=== PATIENT | female | born 1955 | race Caucasian/White ===

== ENCOUNTER 2024-11-14 18:46 | Emergency (ER) | payer OTHER, MEDICAID ==
[~2024-11-14] VITALS: Ht 162.6 cm; Wt 65.0 kg
[~2024-11-14 18:46] MED LIST: NORT25CA3 PO; SERT-158 PO
[2024-11-14 18:49] VITALS: BP 101/65; PULSE 109; RESP 18; TEMP 98.6; O2SAT 96
[2024-11-14 19:21] LABS: BASOPHILS % (AUTO) 0.4 % (0.0-2.0); EOSINOPHILS % (AUTO) 0.2 % (1.0-6.0); HEMATOCRIT 36.3 % (36-46); LYMPHOCYTES # (AUTO) 1.6 K/uL (1.0-4.8); LYMPHOCYTES % (AUTO) 17.2 % (22.0-44.0); MEAN CORPUSCULAR HEMOGLOBIN 33.1 pg (26.0-34.0); MEAN CORPUSCULAR VOLUME 100 fL (80-100); MONOCYTES # (AUTO) 0.5 K/uL (0.1-1.0); MONOCYTES % (AUTO) 5.7 % (2.0-9.0); NEUTROPHILS % (AUTO) 76.5 % (40.0-70.0); PLATELET COUNT (AUTO) 359 K/uL (150-450); RED BLOOD CELL COUNT(AUTO) 3.61 MIL/uL (4.00-5.20); RED CELL DISTRIBUTION WIDTH 13.9 % (11.5-14.5); WHITE BLOOD COUNT (AUTO) 9.2 K/uL (4.5-11.0)
[2024-11-14 19:25] LABS: CALCIUM, TOTAL 9.1 mg/dL (8.8-10.5); CREATININE 0.95 mg/dL (0.60-1.30); POTASSIUM 4.3 mmol/L (3.5-5.1)
[2024-11-14] MEDS: LORazepam 1 MG TABLET PO ONE (22:26)
== END 2024-11-14 22:38 | disposition home or self-care (01) ==
LOC: EMS 18:47
DX: F41.9 Anxiety disorder, unspecified (principal); E11.9 Type 2 diabetes mellitus without complications; I10 Essential (primary) hypertension; Z79.899 Other long term (current) drug therapy
CPT/HCPCS: 99283; 80048; 85025; 36415; G0480

== ENCOUNTER 2025-05-30 11:10 | Inpatient (IN) | payer OTHER, MEDICAID ==
[~2025-05-30] VITALS: Ht 152.4 cm; Wt 74.5 kg
[~2025-05-30 11:10] MED LIST changes: +ARIP5TAB37 PO; +BUSP10TA23 PO; +ESCI20TA87 PO; -NORT25CA3 PO; +QUET25TA PO; -SERT-158 PO
[2025-05-31 18:20] LABS: GLUCOMETER DEV NAME(LOC) POC.BV; POC SARS-COV2 AG, FIA NEGATIVE (NEGATIVE)
[2025-05-31 23:21] LABS: GLUCOMETER DEV NAME(LOC) BV2X.3; GLUCOSE,POINT OF CARE 104 MG/DL (70-110)
[2025-06-01 00:29] VITALS: BP 126/70; PULSE 75; RESP 18; TEMP 98.6; O2SAT 98
[2025-06-01] MEDS ORDERED: NICOTINE 14 MG/24 HOUR PATCH TD PRN (07:15)
[2025-06-01] MEDS ORDERED: PETROLATUM,WHITE 28 GM JELLY TP PRN (07:15)
[2025-06-01] MEDS ORDERED: DOCUSATE SODIUM 100 MG CAPSULE PO PRN (07:15)
[2025-06-01] MEDS ORDERED: ALBUTEROL SULFATE HFA 90 MCG/PUFF 8 GM INHALER IH PRN (07:15)
[2025-06-01] MEDS ORDERED: GuaiFENesin/D-METHORPHAN [SUGAR-FREE] 200-20MG/10 ML SYRUP UDCUP PO PRN (07:15)
[2025-06-01] MEDS ORDERED: LOPERAMIDE HCL 2 MG CAPSULE PO PRN (07:15)
[2025-06-01] MEDS ORDERED: ONDANSETRON 4 MG TABLET PO PRN (07:15)
[2025-06-01 08:16] VITALS: BP 115/81; PULSE 76; RESP 18; TEMP 97.8; O2SAT 99
[2025-06-01 09:01] LABS: PLATELET COUNT (AUTO) 290 K/uL (150-450); RED BLOOD CELL COUNT(AUTO) 3.46 MIL/uL (4.00-5.20); RED CELL DISTRIBUTION WIDTH 14.8 % (11.5-14.5); WHITE BLOOD COUNT (AUTO) 4.6 K/uL (4.5-11.0)
[2025-06-01 09:29] LABS: ASPARTATE AMINOTRANSFERASE 23 U/L (15-37); CALCIUM, TOTAL 9.0 mg/dL (8.8-10.5); CHOL/HDL RATIO 2.7 (3.9-5.7); CREATININE 0.65 mg/dL (0.60-1.30); GLOMERULAR FILTR. RATE CALC > 60 mL/min (>60); GLUCOSE,RANDOM 84 mg/dL (70-110); SODIUM SERUM 141 mmol/L (136-145); TOTAL PROTEIN, SERUM 6.3 g/dL (6.4-8.2); UREA NITROGEN, BLOOD 12 mg/dL (7-18)
[2025-06-01 09:42] LABS: LDL CHOL (CALC.) 74 mg/dL (0-130)
[2025-06-01 11:27] VITALS: RESP 18
[2025-06-01] MEDS: ESCITALOPRAM OXALATE 20 MG TABLET PO SCH (14:07)
[2025-06-01 20:08] VITALS: BP 136/72; PULSE 97; RESP 17; TEMP 97.6; O2SAT 99
[2025-06-01 21:40] VITALS: RESP 18; O2SAT 98
[2025-06-01] MEDS: ACETAMINOPHEN 325 MG TABLET PO PRN (21:44)
[2025-06-01 22:44] VITALS: RESP 16; O2SAT 99
[2025-06-02 08:44] VITALS: BP 139/96; PULSE 92; RESP 17; TEMP 98.1; O2SAT 97
[2025-06-02 12:10] VITALS: BP 131/80; PULSE 99; RESP 18; TEMP 98.2; O2SAT 98
[2025-06-02] MEDS: LOSARTAN POTASSIUM 25 MG TABLET PO SCH (12:30)
[2025-06-02] MEDS: IBUPROFEN 400 MG TABLET PO PRN (12:30)
[2025-06-02 13:14] LABS: CHOL/HDL RATIO 3.8 (3.9-5.7); LDL CHOL (CALC.) 113.0 mg/dL (0-130)
[2025-06-02 13:30] VITALS: RESP 18
[2025-06-02] MEDS: DOCUSATE SODIUM 100 MG CAPSULE PO SCH (17:28)
[2025-06-02 20:18] VITALS: BP_SYST 119; BP_DIAS 21; BP_DIAS 81; PULSE 89; RESP 17; TEMP 99.1; O2SAT 98
[2025-06-02] MEDS: ATORVASTATIN CALCIUM 20 MG TABLET PO SCH (20:27)
[2025-06-02] MEDS: OMEGA-3/DHA/EPA/FISH OIL 1,000 MG CAPSULE PO SCH (20:27)
[2025-06-02 22:06] LABS: HEPATITIS C AB (EIA) Non Reactive (Non Reactive)
[2025-06-03 06:02] VITALS: BP 128/80; PULSE 90; RESP 18; TEMP 98.9; O2SAT 98
[2025-06-03] MEDS: FAMOTIDINE 20 MG TABLET PO SCH (06:45)
[2025-06-03] MEDS: FERROUS SULFATE 325 MG EC TABLET PO SCH (06:45)
[2025-06-03 07:02] VITALS: RESP 18
[2025-06-03] MEDS: MAGNESIUM HYDROXIDE SUSPENSION 30 ML UDCUP PO PRN (07:02)
[2025-06-03] MEDS: CHOLECALCIFEROL (VIT D3) 2,000 UNITS [50 MCG] TABLET PO SCH (08:21)
[2025-06-03 08:37] VITALS: BP 127/82; PULSE 82; RESP 18; TEMP 98.3; O2SAT 95
[2025-06-03 13:20] VITALS: BP 130/80; PULSE 85; RESP 18; TEMP 98.9; O2SAT 96
[2025-06-03] MEDS: INFLUENZA VIRUS VACCINE TVS (6MO+) 2025-26/PF 45 MCG/0.5 ML SYRINGE IM. ONE (13:25)
[2025-06-03 14:20] VITALS: RESP 18
[2025-06-03 20:16] VITALS: BP 119/70; PULSE 87; RESP 16; TEMP 97.5; O2SAT 98
[2025-06-04 08:48] VITALS: BP 118/74; PULSE 81; RESP 18; TEMP 98; O2SAT 95
[2025-06-04 20:12] VITALS: BP 113/68; PULSE 88; RESP 18; TEMP 97.8; O2SAT 97
[2025-06-05 08:25] VITALS: BP 144/99; PULSE 96; RESP 18; TEMP 98.3; O2SAT 96
[2025-06-05 09:07] VITALS: RESP 18; O2SAT 96
[2025-06-05 10:07] VITALS: RESP 17; O2SAT 96
[2025-06-05] MEDS: MAG HYDROX/ALUMINUM HYD/SIMETH ES 30 ML SUSPENSION UDCUP PO PRN (15:14)
[2025-06-05 20:08] VITALS: BP 125/87; PULSE 84; RESP 17; TEMP 98.1; O2SAT 98
[2025-06-05] MEDS: ZOLPIDEM TARTRATE 10 MG TABLET PO PRN (20:53)
[2025-06-06 08:32] VITALS: BP 137/75; PULSE 80; RESP 17; TEMP 98; O2SAT 98
[2025-06-06 16:57] VITALS: BP 125/74; PULSE 78; RESP 18
[2025-06-06 17:57] VITALS: RESP 17
[2025-06-06 20:00] VITALS: BP 128/67; PULSE 75; RESP 18; TEMP 98.3; O2SAT 97
[2025-06-07 00:50] VITALS: BP 134/83; PULSE 83; RESP 18; TEMP 97.2; O2SAT 95
[2025-06-07 01:27] VITALS: RESP 18
[2025-06-07 09:00] VITALS: BP 139/94; PULSE 80; RESP 18; TEMP 98; O2SAT 97
[2025-06-07 20:00] VITALS: BP 136/82; PULSE 93; RESP 17; TEMP 97.7; O2SAT 98
[2025-06-08 08:14] VITALS: BP 133/85; PULSE 81; RESP 18; TEMP 97.9; O2SAT 98
[2025-06-08 20:09] VITALS: BP 116/75; PULSE 96; RESP 18; TEMP 98.3; O2SAT 95
[2025-06-09 08:23] VITALS: BP 143/89; PULSE 85; RESP 16; TEMP 98.4; O2SAT 96
[2025-06-09 08:31] VITALS: BP 143/89; PULSE 85; RESP 16; TEMP 98.4; O2SAT 96
[2025-06-09 10:12] VITALS: RESP 18; TEMP 98.4
[2025-06-09] MEDS: HYDROCORTISONE 1% 30 GM OINTMENT TP SCH (10:12)
[2025-06-09 11:12] VITALS: RESP 16
[2025-06-09 20:43] VITALS: BP 138/79; PULSE 98; RESP 18; TEMP 98.1
[2025-06-10 08:30] VITALS: BP 123/76; PULSE 89; RESP 18; TEMP 98.4; O2SAT 96
[2025-06-10 12:25] VITALS: RESP 18
[2025-06-10 13:25] VITALS: RESP 18
[2025-06-10 17:25] VITALS: RESP 18
[2025-06-10 18:25] VITALS: RESP 18
[2025-06-10 20:55] VITALS: BP 122/71; PULSE 80; RESP 16; TEMP 98.2; O2SAT 94
[2025-06-11 03:22] VITALS: BP 114/92; PULSE 90; RESP 16; O2SAT 98
[2025-06-11 04:22] VITALS: RESP 16
[2025-06-11 08:28] VITALS: BP 161/90; PULSE 87; RESP 16; TEMP 98.8; O2SAT 98
[2025-06-11 20:35] VITALS: BP 138/76; PULSE 89; RESP 17; TEMP 98.4; O2SAT 97
[2025-06-11 20:46] VITALS: RESP 17
[2025-06-11 21:46] VITALS: RESP 17
[2025-06-12 07:01] LABS: GLUCOMETER DEV NAME(LOC) BV2S.; GLUCOSE,POINT OF CARE 176 MG/DL (70-110)
[2025-06-12 08:38] VITALS: BP 147/88; PULSE 83; RESP 18; TEMP 98.4; O2SAT 98
[2025-06-12 12:04] VITALS: BP 135/80; PULSE 85; RESP 18; TEMP 98.5; O2SAT 98
[2025-06-12 14:44] VITALS: BP 134/92; PULSE 96; RESP 18; O2SAT 97
[2025-06-12 15:46] VITALS: RESP 18
[2025-06-12 20:27] VITALS: RESP 18
[2025-06-13 08:22] VITALS: BP 127/65; PULSE 79; RESP 16; TEMP 98.5; O2SAT 96
[2025-06-13 08:44] VITALS: RESP 18
[2025-06-13 09:44] VITALS: RESP 16
[2025-06-13 20:37] VITALS: RESP 18
[2025-06-14 02:59] VITALS: BP 169/93; PULSE 82; RESP 16; TEMP 98.4
[2025-06-14 03:59] VITALS: BP 145/72
[2025-06-14 08:17] VITALS: BP 153/73; PULSE 86; RESP 16; TEMP 98.1; O2SAT 96
[2025-06-14 09:52] LABS: APPEARANCE,URINE CLEAR (CLEAR); GLUCOSE, URINE (UA) NEGATIVE (NEGATIVE); LEUKOCYTE ESTERASE ,URINE NEGATIVE (NEGATIVE); NITRATE,URINE NEGATIVE (NEGATIVE); OCCULT BLOOD,URINE NEGATIVE (NEGATIVE); PH,URINE DRUG SCREEN 7.0 (5.0-8.0); SPECIFIC GRAVITIY, URINE 1.012 (1.003-1.030)
[2025-06-14 10:01] LABS: ALCOHOL, URINE DRUG SCREEN NEGATIVE (NEGATIVE); AMPHET/METH SCREEN,URINE NEGATIVE (NEGATIVE); BARBITURATE SCREEN, URINE NEGATIVE (NEGATIVE); CANNABINOID SCREEN,URINE NEGATIVE (NEGATIVE); COCAINE SCREEN,URINE NEGATIVE (NEGATIVE); METHADONE SCREEN, URINE NEGATIVE (NEGATIVE)
[2025-06-14 13:53] VITALS: RESP 16; O2SAT 96
[2025-06-14 14:53] VITALS: RESP 16; O2SAT 96
[2025-06-14 20:40] VITALS: BP 132/80; PULSE 80; RESP 18; TEMP 98.2; O2SAT 97
[2025-06-15 08:30] VITALS: BP 139/99; PULSE 100; RESP 18; TEMP 97.6; O2SAT 97
[2025-06-15 21:10] VITALS: BP 129/87; PULSE 89; RESP 18; TEMP 98.4; O2SAT 98
[2025-06-16 08:15] VITALS: BP 147/88; PULSE 94; RESP 16; TEMP 98; O2SAT 96
[2025-06-16] MEDS: PEG 400/HYPROMELLOSE/GLYCERIN 15 ML OPHTHALMIC SOLUTION OU PRN (17:39)
[2025-06-16 20:37] VITALS: BP 137/83; PULSE 86; RESP 17; TEMP 98; O2SAT 96
[2025-06-17 08:28] VITALS: BP 138/72; PULSE 85; RESP 18; TEMP 98.6; O2SAT 100
[2025-06-17] MEDS ORDERED: HYDR30CR39 TP (12:55)
[2025-06-17] MEDS ORDERED: CHOL25TA4 PO (12:55)
[2025-06-17] MEDS ORDERED: OXYB5TAB20 PO (12:56)
[2025-06-17] MEDS ORDERED: LOSA-382 PO (12:57)
[2025-06-17] MEDS ORDERED: DOCU-385 PO (12:58)
[2025-06-17] MEDS ORDERED: AMLO2.5T96 PO (12:58)
[2025-06-17] MEDS ORDERED: FAMO20 PO (12:59)
[2025-06-17] MEDS ORDERED: METF-1211 PO (12:59)
[2025-06-17] MEDS ORDERED: FERR325T27 PO (12:59)
[2025-06-17] MEDS ORDERED: ATOR20TA PO (13:00)
[2025-06-17] MEDS ORDERED: OMEG1CAP45 PO (13:01)
[2025-06-17 13:35] VITALS: BP 132/82; PULSE 89; RESP 18; TEMP 98.2; O2SAT 99
[2025-06-17 14:25] VITALS: RESP 17
== END 2025-06-17 15:02 | disposition home or self-care (01) | DRG 885 ==
LOC: B2X 05-31 17:54 → B2S 06-05 08:44
PROVIDERS: ADMIT Psychiatry & Neurology Child & Adolescent Psychiatry; ATTEND Psychiatry & Neurology Child & Adolescent Psychiatry
PROC: GZ56ZZZ Individual Psychotherapy, Supportive (ICD-10-PCS; principal; 2025-06-01)
PROC: GZ52ZZZ Individual Psychotherapy, Cognitive (ICD-10-PCS; 2025-06-01)
PROC: GZHZZZZ Group Psychotherapy (ICD-10-PCS; 2025-06-01)
DX: F33.2 Major depressive disorder, recurrent severe without psychotic features (principal); R45.851 Suicidal ideations; E11.9 Type 2 diabetes mellitus without complications; D64.9 Anemia, unspecified; F41.1 Generalized anxiety disorder; E78.5 Hyperlipidemia, unspecified; I10 Essential (primary) hypertension; M81.0 Age-related osteoporosis without current pathological fracture; Z20.822 Contact with and (suspected) exposure to COVID-19; Z79.899 Other long term (current) drug therapy
CPT/HCPCS: 80053; 80061; 80307; 81003; 82962; 83036; 84436; 84443; 85025; 86592; 86803; 87081; 87340; 90686